=== PATIENT | male | born 1940 | race Asian ===

== ENCOUNTER → 2019-09-21 | Outpatient (CLI) | payer MEDICARE, OTHER | END | disposition home or self-care (01) | LOC: RADMN 15:18 | PROVIDERS: ATTEND Internal Medicine | DX: R91.8 Other nonspecific abnormal finding of lung field (principal) | CPT/HCPCS: 71250 ==

== ENCOUNTER → 2020-07-18 | Outpatient (CLI) | payer MEDICARE, OTHER | END | disposition home or self-care (01) | LOC: RADMN 14:54 | PROVIDERS: ATTEND Internal Medicine | DX: I25.10 Atherosclerotic heart disease of native coronary artery without angina pectoris (principal); J44.9 Chronic obstructive pulmonary disease, unspecified; I70.0 Atherosclerosis of aorta; K57.30 Diverticulosis of large intestine without perforation or abscess without bleeding; N28.1 Cyst of kidney, acquired | CPT/HCPCS: 71250 ==

== ENCOUNTER → 2021-03-01 | Outpatient (CLI) | payer MEDICARE, OTHER ==
[~2021-03-01] VITALS: Ht 152.4 cm; Wt 64.4 kg
[~2021-03-01] MED LIST: ALBU8HFA IH; AMLO-258 PO; ASPI-1444 PO; ATOR40TA28 PO; CHOL100044 PO; CLOP75TA60 PO; DOXA2TAB PO; FINA-27 PO; FLUT1BLS IH; LEVE500T53 PO; LOSA50TA37 PO; OMEG-135 PO; PANT-31 PO; UBID100C10 PO
[2021-03-01 10:29] VITALS: BP 128/62
== END | disposition home or self-care (01) ==
LOC: SRCNTR 10:04
PROVIDERS: ATTEND Internal Medicine
DX: J44.9 Chronic obstructive pulmonary disease, unspecified (principal); I10 Essential (primary) hypertension; N40.0 Benign prostatic hyperplasia without lower urinary tract symptoms; R09.82 Postnasal drip; F17.200 Nicotine dependence, unspecified, uncomplicated; R91.8 Other nonspecific abnormal finding of lung field
CPT/HCPCS: G0463

== ENCOUNTER → 2021-07-24 | Outpatient (CLI) | payer MEDICARE, OTHER ==
[~2021-07-24] VITALS: Ht 152.4 cm; Wt 63.8 kg
[~2021-07-24] MED LIST changes: +CHOL-35 PO; -CHOL100044 PO
[2021-07-24 10:46] VITALS: BP 127/52
== END | disposition home or self-care (01) ==
LOC: SRCNTR 10:06
PROVIDERS: ATTEND Internal Medicine
DX: I10 Essential (primary) hypertension (principal); N40.0 Benign prostatic hyperplasia without lower urinary tract symptoms; J45.909 Unspecified asthma, uncomplicated; R09.82 Postnasal drip; R91.8 Other nonspecific abnormal finding of lung field; Z87.891 Personal history of nicotine dependence
CPT/HCPCS: G0463

== ENCOUNTER → 2022-10-15 | Outpatient (CLI) | payer MEDICARE, OTHER ==
[~2022-10-15] VITALS: Ht 152.4 cm; Wt 64.0 kg
[~2022-10-15] MED LIST changes: -CHOL-35 PO; +CHOL25TA4 PO; -DOXA2TAB PO; +DOXA2TAB86 PO; +FLUT16SP NASAL; +LEVE500T20 PO; -LEVE500T53 PO; +LORA10TA7 PO; +LOSA-382 PO; -LOSA50TA37 PO
[2022-10-15 09:11] VITALS: BP 128/54
== END | disposition home or self-care (01) ==
LOC: SRCNTR 08:36
PROVIDERS: ATTEND Internal Medicine
DX: I10 Essential (primary) hypertension (principal); J45.909 Unspecified asthma, uncomplicated; N40.0 Benign prostatic hyperplasia without lower urinary tract symptoms; R09.82 Postnasal drip; R91.8 Other nonspecific abnormal finding of lung field; Z87.891 Personal history of nicotine dependence
CPT/HCPCS: G0463

== ENCOUNTER → 2022-12-05 | Outpatient (CLI) | payer MEDICARE, OTHER ==
[~2022-12-05] MED LIST changes: -OMEG-135 PO; -UBID100C10 PO
== END | disposition home or self-care (01) ==
LOC: RADMN 15:14
PROVIDERS: ATTEND Internal Medicine
DX: J98.4 Other disorders of lung (principal); R91.1 Solitary pulmonary nodule; I51.7 Cardiomegaly; I70.0 Atherosclerosis of aorta; I25.10 Atherosclerotic heart disease of native coronary artery without angina pectoris; I70.8 Atherosclerosis of other arteries; N28.89 Other specified disorders of kidney and ureter; M47.814 Spondylosis without myelopathy or radiculopathy, thoracic region
CPT/HCPCS: 71250

== ENCOUNTER → 2023-05-09 | Outpatient (CLI) | payer MEDICARE, OTHER ==
[~2023-05-09] VITALS: Ht 152.4 cm; Wt 64.0 kg
[~2023-05-09] MED LIST changes: +ALBU18HF12 IH; -ALBU8HFA IH
[2023-05-09 09:04] VITALS: BP 115/56; PULSE 59; RESP 17; TEMP 98.1; O2SAT 98
== END | disposition home or self-care (01) ==
LOC: SRCNTR 08:48
PROVIDERS: ATTEND Internal Medicine
DX: J45.909 Unspecified asthma, uncomplicated (principal); I10 Essential (primary) hypertension; N40.0 Benign prostatic hyperplasia without lower urinary tract symptoms; N28.89 Other specified disorders of kidney and ureter; R91.8 Other nonspecific abnormal finding of lung field; R09.82 Postnasal drip; Z87.891 Personal history of nicotine dependence
CPT/HCPCS: G0463